=== PATIENT | male | born 1930 | race Caucasian/White ===

== ENCOUNTER → 2017-01-26 | Outpatient (CLI) | payer MEDICARE ==
--- NOTE | ~2017-01-26 | SLPPOC ---
[place], [place] ASSISTANT SPA MANAGER PLAN OF CARE NAME: MARSHALL FUNG UNIT #: [id number] ROOM: DOCTOR: MALINDA MAC FACP, MD Speech Language Pathology Plan of Care Page 1 1 (Initial Evaluation) of Patient Name: MARSHALL FUNG Date: 01/26/2017 10:53 AM : 1930 SOC Date: 01/26/2017 [facility] Provider #: [id number] Treating Clinician: BRADLY Hooper-ASSISTANT SPA MANAGER Referring Physician: MALINDA OCHOA Medicare #: [id number] Visits From SOC: 1 Onset Date Description Code Primary Diagnosis: 01/26/2017 DYS.PHAGIA DYSPHAGIA Subjective Comments: Initial evaluation created to initiate the electronic medical record. Please see Tymphany for details. Initial Level Goals Functional Limitation Reporting Swallowing G8996 - Swallowing functional limitation, current status at therapy episode outset and at reporting intervals Current Status: CH - 0 percent impaired, limited or restricted G8997 - Swallowing functional limitation, projected goal status, at therapy episode outset, at reporting intervals, and at discharge or to end reporting Goal Status: CH - 0 percent impaired, limited or restricted G8998 - Swallowing functional limitation, discharge status, at discharge from therapy or to end reporting Discharge Status: CH - 0 percent impaired, limited or restricted 01/26/2017 10:54:21 AM MALINDA OCHOA Date/Time BRADLY Hooper-CHAS Date I certify the need for these services furnished under this plan of treatment while under my care. State License #: [id number] CM:SLPPOC 1100 1100 [facility]
--- NOTE | ~2017-01-26 | PROC NOTE ---
[place], [place] PROCEDURE NOTE NAME: MARSHALL FUNG UNIT #: [id number] ROOM: DOCTOR: EVANTRELL BIRTHDATE: [birth year] DOS: 01/26/2017 MODIFIED BARIUM SWALLOW ORDERING PHYSICIAN: Dr. Barnes. RADIOLOGIST: Dr. Greene. BACKGROUND INFORMATION: The patient an 87-year-old male was seen for modified barium swallow. This test was ordered to rule out aspiration. 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 He reported that he occasionally chokes when eating or drinking and that this has occurred for the past couple of months. The patient currently resides in a long-term and receives a regular diet with chopped meats and thin liquids. For today's assessment, he was alert, oriented and able to follow commands. Respiratory status was within normal limits. Oral peripheral examination revealed presence of upper and lower dentures with adequate fit reported. Lingual, labial and buccal skills were within normal limits in terms of strength, range of motion and coordination. METHODS AND MATERIALS USED FOR THE EXAM: The patient was positioned in the lateral plane and examination was viewed under fluoroscopy. The patient was challenged with a variety of consistencies including applesauce mixed with barium presented in half teaspoon amounts, barium-coated cookie in bite size pieces and thin liquid barium taken by cup in single size amounts. ORAL PHASE: Unremarkable. PHARYNGEAL PHASE: The pharyngeal swallow occurred within a timely manner. During the swallow, laryngeal elevation and epiglottic function were within normal limits. During one instance of swallowing thin liquid by cup, transient upper airway penetration occurred. This is normal, especially given the patient's age. No aspiration occurred with any consistency and there was no residue in the pharynx post-swallow. ESOPHAGEAL PHASE: This phase of the swallow was not formally assessed during this examination. IMPRESSIONS AND RECOMMENDATIONS: Based upon assessment results, this 87-year-old patient presented with oral and pharyngeal swallowing skills that are within normal limits. Recommend he remain on present diet. No followup treatment is warranted. Results and recommendations were shared with the patient and his son who accompanied him and they verbalized understanding. A written copy of results and recommendations was also sent for education of long-term staff. Thank you very much for this referral. Should you have any questions regarding this patient, please contact the speech pathologist at [phone]. [place], [place] PROCEDURE NOTE NAME: MARSHALL FUNG UNIT #: [id number] ROOM: DOCTOR: TRELL GORDON BIRTHDATE: [birth year] TRELL GORDON CM:PROCNOTE:PROCEDURE NOTE 1100 1205 TRELL GORDON
--- NOTE | ~2017-01-26 | SLPPN ---
[place], [place] SODA DISPENSER PROGRESS NOTE NAME: MARSHALL FUNG UNIT #: [id number] ROOM: DOCTOR: LIANA OCHOA MD,MALINDA Speech Language Pathology Treatment Note Page 1 of 1 Patient Name: MARSHALL FUNG Date: 01/26/2017 10:54 AM : 1930 SOC Date: 01/26/2017 [facility] Provider #: [id number] Treating Clinician: BRADLY Hooper-SODA DISPENSER Referring Physician: MALINDA OCHOA Onset Date Code Description Primary Diagnosis: 01/26/2017 DYS.PHAGIA DYSPHAGIA Time In: 10:00 AM Time Out: 11:00 AM SODA DISPENSER Interventions and CPT Codes Consisted of: CPT Code Modifiers Minutes Units MOTION FLUOROSCOPY/SWALLOW 53307 60 1 Total Minutes: 60 Total Timed Minutes: 0 Total Untimed Minutes: 60 Total Units: 1 Total Timed Units: 0 Total Untimed Units: 1 01/26/2017 10:55:09 AM MILA Hooper Date/Time State License #: [id number] CM:DIXON 1100 1100 [facility] THERAP[facility]
--- NOTE | ~2017-01-26 | SLPIE ---
[place], [place] GAS ENGINE OPERATOR COMPRESSORS INITIAL EVALUATION NAME: MARSHALL FUNG UNIT #: [id number] ROOM: DOCTOR: MALINDA MAC FACP, MD Speech Language Pathology Initial Evaluation Page 1 1 of Patient Name: MARSHALL FUNG Date: 01/26/2017 10:53 AM : 1930 SOC Date: 01/26/2017 Provider: [facility] Provider #: [id number] Treating Clinician: BRADLY Hooper-CHAS Referring Physician: MALINDA OCHOA Patient Information Address: [address] [facility] Physician: MALINDA OCHOA Physician #: City, [facility], Zip: [place] [address] Occupation: Unknown # of Approved Visits: 0 Gender: Male 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 Please see CloudCheckr for details. Clinical Findings Functional Goals Functional Limitation Reporting Swallowing G8996 - Swallowing functional limitation, current status at therapy episode outset and at reporting intervals Current Status: CH - 0 percent impaired, limited or restricted G8997 - Swallowing functional limitation, projected goal status, at therapy episode outset, at reporting intervals, and at discharge or to end reporting Goal Status: CH - 0 percent impaired, limited or restricted G8998 - Swallowing functional limitation, discharge status, at discharge from therapy or to end reporting Discharge Status: CH - 0 percent impaired, limited or restricted 01/26/2017 10:54:21 AM BRADLY Hooper-CHAS Date/Time State License #: [id number] CM:VANESA 1058 [id number] [facility] THERAP[facility]
--- NOTE | 2017-01-26 10:44 | NUR ---
SPEECH PATHOLOGY Outpatient MBS completed as per orders. Patient was alert and cooperative. He was challenged with puree, soft solid cookie and thin liquid. Oral and pharyngeal swallowing skills were WNL. Recommend patient remain on present diet. No follow up treatment is warranted. Results and jones. were shared with patient and his son and they verbalized understanding. A written copy of results and jones. was also sent for education of long term staff. Dictated report to follow. Thank you for this referral. TRELL GORDON MSCCC-MEDICAL ASSISTANT FLOAT
== END | disposition home or self-care (01) ==
LOC: RAD/SH 10:00
DX: R13.10 Dysphagia, unspecified (principal)

== ENCOUNTER 2017-02-02 13:14 | Emergency (ER) | payer MEDICARE ==
[~2017-02-02] VITALS: Ht 177.8 cm; Wt 77.1 kg
== END 2017-02-02 17:41 | disposition home or self-care (01) ==
LOC: ED 13:14
DX: S41.112A Laceration without foreign body of left upper arm, initial encounter (principal); S50.12XA Contusion of left forearm, initial encounter; S60.212A Contusion of left wrist, initial encounter; W18.39XA Other fall on same level, initial encounter; Y93.89 Activity, other specified; Y92.128 Other place in nursing home as the place of occurrence of the external cause; Y99.8 Other external cause status

== ENCOUNTER 2017-02-06 11:41 | Emergency (ER) | payer MEDICARE ==
[~2017-02-06] VITALS: Ht 182.8 cm; Wt 81.6 kg
[2017-02-06 12:02] LABS: BASO % 0.6 % (0.0-1.0); EOS # 0.4 10*3/uL (0.0-0.4); EOS % 5.4 % (1.0-4.0); HEMOGLOBIN 9.3 g/dl (14.0-18.0); LYMPH # 0.7 10*3/uL (1.3-4.4); MEAN CELL VOLUME 106.2 fl (80.0-94.0); MEAN CORPUSCULAR HGB 34.1 pg (27.0-31.0); MEAN CORPUSCULAR HGB CONC 32.1 g/dl (33.0-37.0); MONO # 0.6 10*3/uL (0.1-1.0); MONO % 7.9 % (3.0-9.0); NEUT # 5.5 10*3/uL (2.3-7.9); NEUT % 76.1 % (47.0-73.0); PLATELET COUNT AUTOMATED 218 10*3/uL (130-400); RED BLOOD COUNT 2.73 10*6/uL (4.50-5.90); RED CELL DISTRI WIDTH 13.9 % (0-14.5); WHITE BLOOD COUNT 7.2 10*3/uL (4.8-10.8)
[2017-02-06 12:11] LABS: INTERNATIONAL NORM RATIO 2.4 (2.0-3.5)
[2017-02-06 12:20] LABS: ALBUMIN 2.6 gm/dl (3.1-4.5); CREATININE 1.75 mg/dL (0.70-1.30); POTASSIUM 4.4 mmol/L (3.5-5.1); TOTAL PROTEIN 7.2 gm/dL (6.4-8.2); TROPONIN I 0.04 ng/ml (<0.045)
== END 2017-02-06 14:04 | disposition other institution (70) ==
LOC: ED 11:41
PROVIDERS: Registered Nurse
DX: S41.112A Laceration without foreign body of left upper arm, initial encounter (principal); S41.111A Laceration without foreign body of right upper arm, initial encounter; R10.13 Epigastric pain; Z91.81 History of falling; W19.XXXA Unspecified fall, initial encounter; Y93.89 Activity, other specified; Y92.89 Other specified places as the place of occurrence of the external cause; Y99.9 Unspecified external cause status

== ENCOUNTER 2017-04-03 17:08 | Emergency (ER) | payer MEDICARE ==
[~2017-04-03] VITALS: Ht 172.7 cm; Wt 81.6 kg
--- NOTE | ~2017-04-03 | EKG ---
[place], [place] ELECTROCARDIOGRAM REPORT NAME: MARSHALL FUNG UNIT #: [id number] ROOM: DOCTOR: ALEYDA ABEL MD BIRTHDATE: [birth year] DOS: 04/03/2017 TIME: 1742 hours. Atrial fibrillation with rapid ventricular rate. Nonspecific T-wave changes in chest leads. Occasional ventricular pacing is noted. An abnormal ECG. No previous tracing is available for comparison. ALEYDA ABEL MD CM:EKGRPT:ELECTROCARDIOGRAM REPORT 1700 [id number] ALEYDA ABEL MD
[2017-04-03] MEDS ORDERED: ACCUNEB 0.1.25 MG/1 INH (17:30)
[2017-04-03] MEDS ORDERED: ASPIRIN81 M1 PO (17:30)
[2017-04-03] MEDS ORDERED: BETHANECHOL CHL25 MG PO (17:31)
[2017-04-03] MEDS ORDERED: COLACE100 MG PO (17:31)
[2017-04-03] MEDS ORDERED: PERFOROMIS20 MCG/2 M INH (17:32)
[2017-04-03] MEDS ORDERED: COUMADIN3 M1 PO (17:32)
[2017-04-03] MEDS ORDERED: LASIX20 MG PO (17:32)
[2017-04-03] MEDS ORDERED: IMODIUM A-D2 M2 PO (17:33)
[2017-04-03] MEDS ORDERED: MILK OF MA400 MG/52 PO (17:34)
[2017-04-03] MEDS ORDERED: TOPROL XL25 MG PO (17:35)
[2017-04-03] MEDS ORDERED: MULTIPLE VITAM1 EAC2 PO (17:35)
[2017-04-03] MEDS ORDERED: PRAVACHOL40 MG PO (17:36)
[2017-04-03] MEDS ORDERED: NITROSTAT0.4 MG PO (17:36)
[2017-04-03] MEDS ORDERED: TYLENOL325 M2 PO (17:37)
[2017-04-03] MEDS ORDERED: REMERON15 M2 PO (17:37)
[2017-04-03] MEDS ORDERED: VITAMIN C500 M4 PO (17:38)
[2017-04-03] MEDS ORDERED: VITAMIN D32000 UNIT PO (17:38)
[2017-04-03] MEDS ORDERED: ZOFRAN4 MG PO (17:38)
[2017-04-03 18:05] LABS: BASO % 0.5 % (0.0-1.0); EOS # 0.4 10*3/uL (0.0-0.4); EOS % 5.4 % (1.0-4.0); HEMATOCRIT 32.1 % (42.0-52.0); HEMOGLOBIN 10.2 g/dl (14.0-18.0); LYMPH # 0.6 10*3/uL (1.3-4.4); LYMPH % 8.2 % (27.0-41.0); MEAN CELL VOLUME 100.9 fl (80.0-94.0); MEAN CORPUSCULAR HGB 32.1 pg (27.0-31.0); MEAN CORPUSCULAR HGB CONC 31.8 g/dl (33.0-37.0); MEAN PLATELET VOLUME 10.4 fl (9.6-12.3); MONO # 0.9 10*3/uL (0.1-1.0); NEUT # 5.7 10*3/uL (2.3-7.9); NEUT % 73.1 % (47.0-73.0); PLATELET COUNT AUTOMATED 376 10*3/uL (130-400); RED BLOOD COUNT 3.18 10*6/uL (4.50-5.90); WHITE BLOOD COUNT 7.7 10*3/uL (4.8-10.8)
[2017-04-03 18:22] LABS: ALBUMIN 2.2 gm/dl (3.1-4.5); CREATININE 1.7 mg/dL (0.70-1.30); POTASSIUM 4.2 mmol/L (3.5-5.1); TOTAL PROTEIN 7.3 gm/dL (6.4-8.2)
[2017-04-03 18:33] LABS: TROPONIN I 0.046 ng/ml (<0.045)
[2017-04-03 18:54] LABS: BILIRUBIN NEGATIVE (NEGATIVE); BLOOD NEGATIVE (NEGATIVE); CLARITY CLEAR (CLEAR); COLOR YELLOW (YELLOW); GLUCOSE NEGATIVE (NEGATIVE); KETONE NEGATIVE (NEGATIVE); LEUKO ESTERASE NEGATIVE (NEGATIVE); NITRITE NEGATIVE (NEGATIVE); SPECIFIC GRAVITY <= 1.005 (1.005-1.030)
[2017-04-03 19:01] LABS: BACTERIA TRACE; WBC 0-2 wbc/hpf (0-5)
[2017-04-03] MEDS ORDERED: AMINOPHYLLIN200 MG PO (19:13)
== END 2017-04-03 19:23 | disposition home or self-care (01) ==
LOC: ED 17:08
PROVIDERS: Physician Assistant
DX: R82.71 Bacteriuria (principal); R50.9 Fever, unspecified; Z79.899 Other long term (current) drug therapy; Z79.01 Long term (current) use of anticoagulants